=== PATIENT | female | born 1945 | race Asian ===

== ENCOUNTER 2017-06-06 18:39 | Emergency (ER) | payer MEDICARE, OTHER ==
[~2017-06-06] VITALS: Ht 149.9 cm; Wt 52.0 kg
[~2017-06-06 18:39] MED LIST: ATOR10 PO; COLC1TAB7 PO; COZA100T PO; GLUCTAB PO; IMOD2TAB PO; LOMO PO; POTA-243 PO; ZOFR4TAB3 SL; [UNRECOGNIZED DRUG - CODE] PO
--- NOTE | 2017-06-06 18:47 | PD ---
Physical Exam Date Seen by Provider: Jun 06, 2017 Time Seen by Provider: 18:42 Narrative 71 YOAF C/O L KIDNEY PAIN FOR 2 DAYS. H/O MEDITARRAIAN FEVER , P-ANCA VASCULITIS TX RETUXIN FOR 5 WEEKS VS REVIEWED WAITING FOR BED PLACEMENT MDM Supervised Visit with SHIREEN: Serafin Mcdonough Jun 06, 2017 18:47
[2017-06-06 20:13] LABS: BACTERIA, URINE MANY /hpf; BLOOD, URINE MOD (NEG); GLUCOSE,URINE NEG (NEG); HYALINE CAST, URINE 3 /lpf (RARE); KETONE, URINE NEG (NEG); MUCUS URINE FEW /lpf (OCC); NITRITE,URINE NEG (NEG); SQUAMOUS EPITHELIAL CELL URINE <1 /hpf (0-5); URINE COLOR YELLOW (YELLW/STRAW)
[2017-06-06 21:32] VITALS: BP 189/85; PULSE 80; RESP 16; TEMP 97.8; O2SAT 100
[2017-06-06] MEDS ORDERED: METF500T PO (22:02)
[2017-06-06] MEDS ORDERED: ATOR40TA16 PO (22:02)
[2017-06-06] MEDS ORDERED: LOSA100T PO (22:02)
[2017-06-06] MEDS ORDERED: DILT30TA PO (22:02)
[2017-06-06] MEDS ORDERED: ZOFR4TAB PO (22:02)
[2017-06-06] MEDS ORDERED: COLC1CAP3 PO (22:02)
[2017-06-06 22:03] VITALS: PULSE 74; RESP 18; O2SAT 99
[2017-06-06] MEDS ORDERED: SODIUM CHLOR 0.9% 1000 ML INJ 1,000 ML IV SCH (22:09)
--- NOTE | 2017-06-06 22:14 | PD ---
HPI Chief Complaint: Flank/Kidney Pain Time Seen by Provider: 22:01 Travel History International Travel<30 days: No Contact w/Intl Traveler<30days: No Traveled to known affect area: No History of Present Illness HPI 71-year-old female with history of vasculitis, nephritis, treated with rituximab 2 years ago, from [place], recently moved down here after long-term one week ago, here for evaluation of left flank pain for 2 days. The patient reports constant pain in her left flank area that is intermittently worse at times. Pain is described as sharp/pressure. She has not noted any fevers. Pain slightly worse with movements and radiates to her left lower abdomen. PFSH Past Medical History Atrial Fibrillation: Yes High Cholesterol: Yes Diabetes: Yes Patient Takes Glucophage: Yes Diminished Hearing: No Genitourinary: Yes Hypertension: Yes Immune Disorder: Yes (familial mediteranian fever) Tetanus Vaccination: Unknown Influenza Vaccination: Yes ?: Not Menopausal: Yes Past Surgical History Eye Surgery: Yes (tear ducts) Hysterectomy: Yes Other Surgery: Yes (thyroid nodule) Social History Alcohol Use: No Tobacco Use: No Substance Use: No Allergies-Medications (Allergen,Severity, Reaction): Coded Allergies: No Known Allergies (Unverified , 06/06/17) Reported Meds & Prescriptions Reported Meds & Active Scripts Active Reported Atorvastatin (Atorvastatin Calcium) 40 Mg Tab 40 Mg PO HS Zofran (Ondansetron HCl) 4 Mg Tab 4 Mg PO Q6HR PRN Colchicine 0.6 Mg Cap 0.6 Mg PO BID Diltiazem (Diltiazem HCl) 30 Mg Tab 300 Mg PO DAILY Losartan (Losartan Potassium) 100 Mg Tab 150 Mg PO DAILY Metformin (Metformin HCl) 500 Mg Tab 500 Mg PO BIDPC With meals Review of Systems Except as stated in HPI: all other systems reviewed are Neg Physical Exam Narrative GENERAL: Well-developed, well-nourished, comfortable, no apparent distress. SKIN: Focused skin assessment warm/dry. No rash. HEAD: Atraumatic. Normocephalic. EYES: Pupils equal and round. No scleral icterus. No injection or drainage. ENT: Mucous membranes pink and moist. CARDIOVASCULAR: Regular rate and rhythm. No murmur appreciated. RESPIRATORY: No accessory muscle use. Clear to auscultation. Breath sounds equal bilaterally. GASTROINTESTINAL: Abdomen soft, non-tender, nondistended. MUSCULOSKELETAL: No obvious deformities. No clubbing. No cyanosis. No edema. Moderate left CVA tenderness. No right CVA tenderness. No midline vertebral step-off or tenderness. NEUROLOGICAL: Awake and alert. No obvious cranial nerve deficits. Motor grossly within normal limits. Normal speech. PSYCHIATRIC: Appropriate mood and affect; insight and judgment normal. Data Data Last Documented VS Vital Signs Date Time Temp Pulse Resp B/P Pulse Ox O2 Delivery O2 Flow Rate FiO2 06/06/17 22:33 82 18 149/70 100 Room Air 06/06/17 21:32 97.8 Orders Ua Includes Microscopic (06/06/17 19:17) Urine Culture (06/06/17 22:02) Complete Blood Count With Diff (06/06/17 22:09) Comprehensive Metabolic Panel (06/06/17 22:09) Lipase (06/06/17 22:09) Prothrombin Time / Inr (Pt) (06/06/17 22:09) Act Partial Throm Time (Ptt) (06/06/17 22:09) Iv Access Insert/Monitor (06/06/17 22:09) Ecg Monitoring (06/06/17 22:09) Oximetry (06/06/17 22:09) Morphine Inj (Morphine Inj) (06/06/17 22:15) Ceftriaxone Inj (Rocephin Inj) (06/06/17 22:15) Sodium Chlor 0.9% 1000 Ml Inj (Ns 1000 M (06/06/17 22:09) Sodium Chloride 0.9% Flush (Ns Flush) (06/06/17 22:15) Ct Abd/Pel W/O Iv Contrast (06/06/17 23:05) Basic Metabolic Panel (Bmp) (06/06/17 23:06) Tamsulosin (Flomax) (06/07/17 00:45) Labs Laboratory Tests Test 06/06/17 06/06/17 06/06/17 19:00 22:15 23:56 Urine Color YELLOW Urine Turbidity HAZY Urine pH 6.0 Urine Specific [place] 1.016 Urine Protein 300 mg/dL Urine Glucose (UA) NEG mg/dL Urine Ketones NEG mg/dL Urine Occult Blood MOD Urine Nitrite NEG Urine Bilirubin NEG Urine Urobilinogen LESS THAN 2.0 MG/DL Urine Leukocyte Esterase NEG Urine RBC 177 /hpf Urine WBC 7 /hpf Urine Squamous Epithelial <1 /hpf Cells Urine Bacteria MANY /hpf Urine Hyaline Casts 3 /lpf Urine Mucus FEW /lpf Microscopic Urinalysis Comment White Blood Count 13.2 TH/MM3 Red Blood Count 3.94 MIL/MM3 Hemoglobin 11.4 GM/DL Hematocrit 35.5 % Mean Corpuscular Volume 90.0 FL Mean Corpuscular Hemoglobin 29.0 PG Mean Corpuscular Hemoglobin 32.2 % Concent Red Cell Distribution Width 15.0 % Platelet Count 387 TH/MM3 Mean Platelet Volume 9.3 FL Neutrophils (%) (Auto) 89.1 % Lymphocytes (%) (Auto) 7.0 % Monocytes (%) (Auto) 2.8 % Eosinophils (%) (Auto) 0.4 % Basophils (%) (Auto) 0.7 % Neutrophils # (Auto) 11.8 TH/MM3 Lymphocytes # (Auto) 0.9 TH/MM3 Monocytes # (Auto) 0.4 TH/MM3 Eosinophils # (Auto) 0.1 TH/MM3 Basophils # (Auto) 0.1 TH/MM3 CBC Comment DIFF FINAL Differential Comment Prothrombin Time 10.5 SEC Prothromb Time International 1.0 RATIO Ratio Activated Partial 27.4 SEC Thromboplast Time Sodium Level 139 MEQ/L 141 MEQ/L Potassium Level 5.8 MEQ/L 5.1 MEQ/L Chloride Level 108 MEQ/L 111 MEQ/L Carbon Dioxide Level 23.5 MEQ/L 21.4 MEQ/L Anion Gap 8 MEQ/L 9 MEQ/L Blood Urea Nitrogen 32 MG/DL 31 MG/DL Creatinine 1.75 MG/DL 1.55 MG/DL Estimat Glomerular Filtration 29 ML/MIN 33 ML/MIN Rate Random Glucose 127 MG/DL 120 MG/DL Calcium Level 8.8 MG/DL 8.4 MG/DL Total Bilirubin 0.2 MG/DL Aspartate Amino Transf 45 U/L (AST/SGOT) Alanine Aminotransferase 20 U/L (ALT/SGPT) Alkaline Phosphatase 110 U/L Total Protein 6.7 GM/DL Albumin 2.6 GM/DL Lipase 157 U/L MDM Medical Decision Making Medical Screen Exam Complete: Yes Emergency Medical Condition: Yes Differential Diagnosis Pyelonephritis, nephrolithiasis, ureterolithiasis, UTI, cystitis, colitis, nephritis Narrative Course Initial vital signs show heart rate 80, blood pressure 189/85, pulse ox 100% on room air, oral temp of 97.8F. Blood pressure improved to 149/70 without any intervention. CBC shows WBC 13.2, hemoglobin 11.4, hematocrit 35.5, platelets 387, neutrophils 89%. BMP initially showed a potassium of 5.8 with slight hemolysis, repeat shows a potassium of 5.1, BUN 31, creatinine 1.55, GFR 33. UA shows hazy urine, 300 protein, moderate occult blood, 177 RBCs, 7 wbc's, many bacteria. Patient was given a dose of IV Rocephin. CT abdomen pelvis: CONCLUSION: 1. 2-3 mm stone in the proximal left ureter with mild pelvocaliectasis of the left renal collecting system. This likely explains current clinical symptoms. 2. Pleural-based calcifications in both hemithoraces, most prominent laterally in the left lower chest. Findings are nonspecific and can represent prior asbestos exposure or previous trauma. 3. Bony fusion of the left SI joint. 4. Diverticular disease of the descending and sigmoid colon without diverticulitis. 5. Asymmetric soft tissue density in the breasts, left greater than right. Findings are again nonspecific and I would correlate with the patient's mammographic history. Patient and the patient's significant other were made aware of all findings. She is resting comfortably after receiving IV morphine and IV fluids. She was also given a dose of IV Rocephin 1 g. Patient was given a copy of her CT abdomen pelvis report. 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 She states that her last colonoscopy was about 2 years ago and that they told her that she is concerned for another 10 years from then. She is also aware of asymmetric breast density and states that her last mammogram was last year which showed this asymmetry, however was negative for suspicious cancerous lesions. The patient is stable for discharge home with outpatient follow-up with a primary care physician this week. She will be discharged home with a prescription for Flomax, pain medication, antiemetics, and antibiotics. She will also be given a urine strainer, and will be given the name of the urologist taxonomist with whom to follow-up with as well this week. She was informed on when to return to the emergency department. She verbalizes understanding and agreement with plan. Diagnosis Primary Impression: Ureterolithiasis Referrals: Leighton Owens MD Primary Care Provider Mikal Armendariz MD 3 days Urologist Primary Care Physician 3 days Additional Instructions: Follow-up with a primary care physician this week. Follow-up with urologist Dr. Armendariz or a urologist of your choice this week. Return to the emergency department for worsening symptoms or any other concerns. Scripts Ondansetron Odt (Zofran Odt)4 Mg Tab4 Mg SL Q8HR PRN (Nausea/Vomiting) #20 TAB Ref 0 Prov:Rodriguez Lopez MD 06/07/17 Hydrocodone-Acetaminophen (Lortab)5-325 Mg Tab1 Tab PO Q6H PRN (PAIN) #15 TAB Ref 0 Prov:Rodriguez Lopez MD 06/07/17 Nitrofurantoin Monohydrate Macrocrystals (Macrobid)100 Mg Ypt975 Mg PO BID #7 CAP Ref 0 Prov:Rodriguez Lopez MD 06/07/17 Tamsulosin (Flomax)0.4 Mg Cap0.4 Mg PO HS #14 CAP Ref 0 Prov:Rodriguez Lopez MD 06/07/17 Disposition: 01 DISCHARGE HOME Condition: Stable Rodriguez Lopez MD Jun 06, 2017 22:14
[2017-06-06] MEDS ORDERED: SODIUM CHLORIDE 0.9% FLUSH 10 ML FLUSH IV FLUSH PRN (22:15)
[2017-06-06] MEDS ORDERED: MORPHINE SULFATE 4 MG/ML INJ IV PUSH ONE (22:15)
[2017-06-06] MEDS ORDERED: cefTRIAXone INJ 1,000 MG in SODIUM CHLORIDE 0.9% INJ 100 ML IV ONE (22:15)
[2017-06-06 22:33] VITALS: BP 149/70; PULSE 82; RESP 18; O2SAT 100
[2017-06-06 22:45] LABS: AUTOMATED NEUTROPHIL # 11.8 TH/MM3 (1.8-7.7); BASOPHIL # 0.1 TH/MM3 (0-0.2); BASOPHIL % 0.7 % (0.0-2.0); EOSINOPHIL # 0.1 TH/MM3 (0-0.4); EOSINOPHIL % 0.4 % (0.0-4.0); HEMATOCRIT 35.5 % (35.0-46.0); HEMO FLAGS DIFF FINAL; LYMPHOCYTE # 0.9 TH/MM3 (1.0-4.8); MEAN CORPUSCULAR HGB CONC 32.2 % (32.0-36.0); MONO % 2.8 % (0.0-8.0); NEUT % 89.1 % (16.0-70.0); PLATELET COUNT 387 TH/MM3 (150-450); RED BLOOD COUNT 3.94 MIL/MM3 (4.00-5.30); WHITE BLOOD COUNT 13.2 TH/MM3 (4.0-11.0)
[2017-06-06 22:54] LABS: APTT (PATIENT) 27.4 SEC (24.3-30.1); PROTHROMBIN TIME - PATIENT 10.5 SEC (9.8-11.6)
[2017-06-06 23:00] LABS: ANION GAP 8 MEQ/L (5-15); AST (GOT) 45 U/L (15-37); BICARBONATE 23.5 MEQ/L (21.0-32.0); BLOOD UREA NITROGEN 32 MG/DL (7-18); CHLORIDE 108 MEQ/L (98-107); GLOMERULAR FILTRATION RATE 29 ML/MIN (>89); SODIUM (NA) 139 MEQ/L (136-145)
[2017-06-06 23:01] LABS: POTASSIUM 5.8 MEQ/L (3.5-5.1)
[2017-06-06 23:03] LABS: ALKALINE PHOSPHATASE 110 U/L (45-117); ALT (GPT) 20 U/L (10-53); TOTAL BILIRUBIN ADULT 0.2 MG/DL (0.2-1.0)
--- NOTE | 2017-06-07 00:25 | RADRPT ---
EXAM DATE/TIME: 06/06/2017 23:47 [facility] COMPARISON: No previous studies available for comparison. INDICATIONS : Left flank and lower quadrantq pain past 2 days. ORAL CONTRAST: No oral contrast ingested. RADIATION DOSE: 5.03 CTDIvol (mGy) MEDICAL HISTORY : Cardiovascular disease. Hypertension. SURGICAL HISTORY : Hysterectomy. ENCOUNTER: Initial ACUITY: 2 days PAIN SCALE: 6/10 LOCATION: Left lower quadrant flank TECHNIQUE: Volumetric scanning of the abdomen and pelvis was performed. Using automated exposure control and ad justment of the mA and/or kV according to patient size, radiation dose was kept as low as reasonably achievable to obtain optimal diagnostic quality images. DICOM format image data is available electro nically for review and comparison. FINDINGS: LOWER LUNGS: Pleural-based calcifications are seen bilaterally, most prominent and quite dense laterally in the le ft lower hemithorax. Lungs are otherwise clear. Asymmetric soft tissue density in the breasts, left g reater than right. LIVER: Homogeneous density without lesion. There is no dilation of the biliary tree. No calcified gallston es. SPLEEN: Normal size without lesion. PANCREAS: Within normal limits. KIDNEYS: 2-3 mm stone in the proximal left ureter with mild pelvocaliectasis of the left renal collecting syst em. ADRENAL GLANDS: Within normal limits. VASCULAR: There is no aortic aneurysm. BOWEL/MESENTERY: Diverticular disease in the descending and sigmoid colon without diverticulitis. ABDOMINAL WALL: Within normal limits. RETROPERITONEUM: There is no lymphadenopathy. BLADDER: No wall thickening or mass. REPRODUCTIVE: Status post hysterectomy. Otherwise intact. INGUINAL: There is no lymphadenopathy or hernia. MUSCULOSKELETAL: Bony fusion of the left SI joint. CONCLUSION: 1. 2-3 mm stone in the proximal left ureter with mild pelvocaliectasis of the left renal collecting s ystem. This likely explains current clinical symptoms. 2. Pleural-based calcifications in both hemithoraces, most prominent laterally in the left lower ches t. Findings are nonspecific and can represent prior asbestos exposure or previous trauma. 3. Bony fusion of the left SI joint. 4. Diverticular disease of the descending and sigmoid colon without diverticulitis. 5. Asymmetric soft tissue density in the breasts, left greater than right. Findings are again nonspec ific and I would correlate with the patient's mammographic history. Jasen Anglin MD on June 07, 2017 at 0:11 Board Certified Radiologist. This report was verified electronically.
[2017-06-07 00:28] LABS: BICARBONATE 21.4 MEQ/L (21.0-32.0); POTASSIUM 5.1 MEQ/L (3.5-5.1)
[2017-06-07] MEDS ORDERED: TAMSULOSIN HCL 0.4 MG CAP PO ONE (00:45)
[2017-06-07] MEDS ORDERED: ZOFR4TAB3 SL (01:02)
[2017-06-07] MEDS ORDERED: MACR100C2 PO (01:02)
[2017-06-07] MEDS ORDERED: HYDR-3533 PO (01:02)
[2017-06-07] MEDS ORDERED: TAMS5CAP PO (01:02)
[2017-06-12] MEDS ORDERED: LOSA50TA PO (14:43)
[2017-06-12] MEDS ORDERED: LOSA100T PO (14:43)
[2017-07-12] MEDS ORDERED: COZA100T PO (09:19)
[2017-07-12] MEDS ORDERED: DILT300C3 PO (09:19)
== END 2017-06-07 01:33 | disposition home or self-care (01) ==
LOC: NEPD 18:39
DX: N20.1 Calculus of ureter (principal); B96.1 Klebsiella pneumoniae [K. pneumoniae] as the cause of diseases classified elsewhere; I10 Essential (primary) hypertension; E11.9 Type 2 diabetes mellitus without complications; I48.91 Unspecified atrial fibrillation; E78.00 Pure hypercholesterolemia, unspecified; N05.9 Unspecified nephritic syndrome with unspecified morphologic changes; Z79.899 Other long term (current) drug therapy
CPT/HCPCS: 74176; 80053; 81001; 83690; 85025; 85610; 85730; 87077; 87086; 87186; 96374; 96375; 99285; J0696; J2270; J7030; 80048

== ENCOUNTER → 2017-07-12 | Outpatient (CLI) | payer MEDICARE, OTHER ==
[~2017-07-12] MED LIST changes: +ACET-822 PO; +ASPI81CH37 CHEW; -ATOR10 PO; +ATOR40TA16 PO; +COLC1CAP3 PO; +COLC1TAB15 PO; -COLC1TAB7 PO; +COMMODE 3-IN-11 MIS; +CPMMACHINE; +DILT300C3 PO; +DILT30TA PO; +ENOX30P SQ; -GLUCTAB PO; +HYDR-3288 PO; +HYDR-3533 PO; -IMOD2TAB PO; -LOMO PO; +LOSA100T PO; +LOSA50TA PO; +METF500T PO; -POTA-243 PO; +WALKER WHEELS/F1 MIS; +ZOFR4TAB PO; -[UNRECOGNIZED DRUG - CODE] PO
[2017-07-12 09:39] LABS: AUTOMATED NEUTROPHIL # 5.6 TH/MM3 (1.8-7.7); BASOPHIL # 0.1 TH/MM3 (0-0.2); BASOPHIL % 0.6 % (0.0-2.0); EOSINOPHIL # 0.3 TH/MM3 (0-0.4); EOSINOPHIL % 3.5 % (0.0-4.0); HEMATOCRIT 32.5 % (35.0-46.0); LYMPH % 21.3 % (9.0-44.0); LYMPHOCYTE # 1.8 TH/MM3 (1.0-4.8); MEAN CELL VOLUME 89.5 FL (80.0-100.0); MEAN CORPUSCULAR HEMOGLOBIN 29.1 PG (27.0-34.0); MEAN CORPUSCULAR HGB CONC 32.5 % (32.0-36.0); MONO % 7.7 % (0.0-8.0); NEUT % 66.9 % (16.0-70.0); PLATELET COUNT 369 TH/MM3 (150-450); RED BLOOD COUNT 3.64 MIL/MM3 (4.00-5.30); RED CELL DISTRIBUTION WIDTH 15.2 % (11.6-17.2); WHITE BLOOD COUNT 8.4 TH/MM3 (4.0-11.0)
[2017-07-12 09:44] LABS: HEMO FLAGS DIFF FINAL
[2017-07-12 09:46] LABS: APTT (PATIENT) 26.7 SEC (24.3-30.1); INTERNATIONAL NORMALIZED RATIO 0.9 RATIO; PROTHROMBIN TIME - PATIENT 10.4 SEC (9.8-11.6)
[2017-07-12 09:54] LABS: BACTERIA, URINE RARE /hpf; BLOOD, URINE MOD (NEG); COMMENT (UR) CULT NOT INDICATED; CULTURE IF INDICATED CULT NOT INDICATED; GLUCOSE,URINE TRACE mg/dL (NEG); HYALINE CAST, URINE 22 /lpf (RARE); KETONE, URINE NEG (NEG); MUCUS URINE FEW /lpf (OCC); NITRITE,URINE NEG (NEG); SQUAMOUS EPITHELIAL CELL URINE 1 /hpf (0-5); URINE COLOR YELLOW (YELLW/STRAW)
[2017-07-12 09:54] LABS: WESTERGREN SEDIMENTATION RATE 57 mm/hr (0-30)
[2017-07-12 10:02] LABS: ANION GAP 6 MEQ/L (5-15); AST (GOT) 14 U/L (15-37); BICARBONATE 23.2 MEQ/L (21.0-32.0); BLOOD UREA NITROGEN 29 MG/DL (7-18); CHLORIDE 111 MEQ/L (98-107); GLOMERULAR FILTRATION RATE 33 ML/MIN (>89); GLUCOSE,FASTING 84 MG/DL (74-99); POTASSIUM 5.1 MEQ/L (3.5-5.1); SODIUM (NA) 140 MEQ/L (136-145)
[2017-07-12 10:06] LABS: ALKALINE PHOSPHATASE 107 U/L (45-117); ALT (GPT) 13 U/L (10-53); TOTAL BILIRUBIN ADULT 0.2 MG/DL (0.2-1.0)
--- NOTE | 2017-07-12 15:03 | RADRPT ---
EXAM DATE/TIME: 07/12/2017 14:11 [facility] COMPARISON: No previous studies available for comparison. INDICATIONS : Evaluate for penumonia, pneumothorax, or communicable disease. Pre op for right total knee surgery. MEDICAL HISTORY : Hypercholesterolemia. Diabetes mellitus type II. A-fib. Mumps. Renal vasculitis. Thyroid nodule. Familial Mediterranean fever. SURGICAL HISTORY : Hysterectomy. Renal ENCOUNTER: Initial ACUITY: 1 day PAIN SCORE: 0/10 LOCATION: chest FINDINGS: PA and lateral views of the chest demonstrate a volume loss on the left. Extensive pleural thickening . Extensive pleural calcifications along the lateral convexity on the left. Apical pleural thickening on the left. No consolidation in the right lung. Mild emphysematous changes in the right apex. [place] [facility] structures are intact. CONCLUSION: 1. 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 No prior studies available for michele rison. 2. Left apical pleural thickening. 3. No consolidation. Adryan Wilkinson MD on July 12, 2017 at 15:00 Board Certified Radiologist. This report was verified electronically.
== END ==
LOC: CPRE 08:38
PROVIDERS: ATTEND Orthopaedic Surgery Sports Medicine
DX: Z01.811 Encounter for preprocedural respiratory examination (principal); Z01.818 Encounter for other preprocedural examination; Z01.812 Encounter for preprocedural laboratory examination; M25.50 Pain in unspecified joint; M17.11 Unilateral primary osteoarthritis, right knee; Z79.01 Long term (current) use of anticoagulants
CPT/HCPCS: 36415; 71020; 80053; 81001; 85025; 85610; 85652; 85730

== ENCOUNTER 2017-07-29 05:29 | Inpatient (IN) | payer MEDICARE, OTHER ==
[~2017-07-29] VITALS: Ht 149.9 cm; Wt 58.4 kg
[~2017-07-29 05:29] MED LIST changes: -ACET-822 PO; -ASPI81CH37 CHEW; -COLC1TAB15 PO; -COMMODE 3-IN-11 MIS; -COZA100T PO; -CPMMACHINE; -DILT30TA PO; -ENOX30P SQ; -HYDR-3288 PO; -WALKER WHEELS/F1 MIS; -ZOFR4TAB PO
[2017-07-29] MEDS ORDERED: COLC1TAB15 PO (06:51)
[2017-07-29] MEDS ORDERED: ACET-822 PO (06:53)
[2017-07-29] MEDS ORDERED: GENTAMICIN SULFATE 80 MG/2 ML VIAL ONE (06:53)
[2017-07-29] MEDS ORDERED: LACTATED RINGER'S 1000 ML IV PRN (07:00)
[2017-07-29] MEDS ORDERED: ceFAZolin 2 GM PREMIX 50 ML IV SCH (07:00)
[2017-07-29] MEDS ORDERED: SODIUM CHLORID 0.9% 500 ML IV PRN (07:00)
[2017-07-29] MEDS ORDERED: SODIUM CHLORIDE 0.9% FLUSH 5 ML FLUSH IVF PRN (07:00)
[2017-07-29] MEDS ORDERED: BISACODYL 10 MG SUPP RECTAL PRN (07:00)
[2017-07-29] MEDS ORDERED: POVIDONE IODINE 5% (ANTISEPSIS KIT) 4 APPLICATIONS EACH NARE PRN (07:00)
[2017-07-29] MEDS ORDERED: METOPROLOL TARTRATE 25 MG TAB PO PRN (07:00)
[2017-07-29] MEDS ORDERED: CHLORHEXIDINE GLUCONATE 2 % 1 PACK (2 CLOTHS) TOPICAL PRN (07:00)
[2017-07-29] MEDS ORDERED: Post-op Orders (for Pharmacy) MISC XX ONE (07:00)
[2017-07-29] MEDS ORDERED: CHLORHEXIDINE GLUCONATE 4% SOLN 120 ML BTL TOPICAL SCH (07:00)
[2017-07-29] MEDS ORDERED: POVIDONE IODINE 7.5% SCRUB 118 ML BOTTLE TOPICAL SCH (07:00)
[2017-07-29] MEDS ORDERED: INSULIN HUMAN REGULAR 1,000 UNITS/10 ML VIAL SQ PRN (07:00)
[2017-07-29] MEDS ORDERED: VANCOMYCIN 1000 MG/NS 250 ML (for <70 kg) IV SCH ×2 (07:00)
[2017-07-29] MEDS ORDERED: diphenhydrAMINE HCL 50 MG/ML VIAL IV PUSH PRN (07:00)
[2017-07-29] MEDS ORDERED: MORPHINE SULFATE 4 MG/ML INJ IV PUSH PRN (07:00)
[2017-07-29] MEDS ORDERED: NALOXONE HCL 0.4 MG/ML AMP IV PRN (07:00)
[2017-07-29] MEDS ORDERED: DEXAMETHASONE SOD PHOS 20 MG/5 ML VIAL IV SCH (07:00)
[2017-07-29] MEDS ORDERED: HYDR-3288 PO (07:03)
[2017-07-29] MEDS ORDERED: ROPIVACAINE 0.5% PF INJ 30 ML VIAL ONE (07:03)
[2017-07-29] MEDS ORDERED: ENOX30P SQ (07:03)
[2017-07-29] MEDS ORDERED: DEXAMETHASONE SOD PHOS 4 MG/ML VIAL ONE (07:04)
[2017-07-29] MEDS ORDERED: ASPI81CH37 CHEW (07:04)
[2017-07-29] MEDS ORDERED: PROPOFOL 200 MG/20 ML AMP ONE (07:43)
[2017-07-29] MEDS ORDERED: BUPIVACAINE LIPOSOME PF 1.3% 20 ML VIAL ONE (07:46)
[2017-07-29] MEDS ORDERED: ROPIVACAINE PERI-ARTICULAR INJECTION. P-ARTICULR SCH ×5 (08:30)
[2017-07-29] MEDS ORDERED: TRANEXAMIC ACID INJ 786 MG in SODIUM CHLORIDE 0.9% INJ 100 ML IV SCH (08:30)
[2017-07-29] MEDS ORDERED: TRANEXAMIC PERI-ARTICULAR 3,000 MG/NS 100 ML P-ARTICULR SCH ×2 (08:30)
[2017-07-29] MEDS: metFORMIN HCL 500 MG TAB PO SCH ×2 (09:00→17:52)
[2017-07-29] MEDS: SODIUM CHLORIDE 0.9% FLUSH 5 ML FLUSH IVF SCH ×2 (09:00→20:57)
[2017-07-29] MEDS: LOSARTAN 50 MG TAB PO SCH (09:00)
[2017-07-29] MEDS: COLCHICINE 0.6 MG TAB PO SCH ×2 (09:00→20:57)
[2017-07-29] MEDS: DILTIAZEM-CD 300 MG CAP ER PO SCH (09:00)
[2017-07-29] MEDS ORDERED: DO NOT ADM ANY ANTICOAGULANT DRUGS PRN (09:58)
--- NOTE | 2017-07-29 10:17 | MP ---
cc: NEVIN TUCKER M.D. DATE OF SURGERY: 07/29/2017 PREOPERATIVE DIAGNOSIS Right knee osteoarthritis. POSTOPERATIVE DIAGNOSIS Right knee osteoarthritis. PROCEDURE Right total knee arthroplasty. SURGEON Dr. Nevin Tucker. INDUSTRIAL ENGINEERING INTERN Nevin Kelly PA-C. ANESTHESIA Spinal with an adductor canal nerve block. ESTIMATED BLOOD LOSS 50 cc. TOURNIQUET TIME 37 minutes at 250 mmHg. COMPLICATIONS None. IMPLANTS USED DePuy Sourceryune size 4 posterior stabilized femoral component, size 3 rotating platform tibia baseplate, size 6 mm polyethylene tibial insert, size 32 patella. JUSTIFICATION The patient is a 61-year-old female with a history of severe end-stage osteoarthritis involving the right knee. She has severe disabling pain with standing, walking, ambulation, weightbearing activities and even severe pain at rest. She has failed greater than three months of nonoperative conservative treatment to include medication, therapy, injections, ambulatory assisted aids, home exercise program and activity modification. The patient is not overweight. X-rays of the right knee reveal severe end-stage osteoarthritis with [id number] joint space narrowing, subchondral sclerosis, subchondral cysts, osteophyte formation with varus deformity. The patient was counseled as to the risks, benefits and alternatives of a total knee arthroplasty. The risks were discussed which include but are not limited to anesthesia, bleeding, infection, damage to nerves, blood vessels, pain, stiffness, failure of components, blood clots, pulmonary embolism and even . The patient's pain is severe. She favored the benefits over the risks. She did wish to proceed with surgery. PROCEDURE IN DETAIL Written consent was obtained. The patient was identified by name. She was taken to the operating room and placed supine on the operating table. Spinal anesthesia was administered as well as an adductor canal nerve block. A well-padded tourniquet was placed on the right thigh. The right lower extremity was prepped and draped using isopropyl alcohol, Hibiclens solution and ChloraPrep solution. After a timeout was performed an Esmarch bandage was used to exsanguinate the right lower extremity and tourniquet inflated to 250 mmHg. A longitudinal incision was made over the anterior aspect of the right knee. A medial parapatellar arthrotomy was performed. The patella was everted. A patellar resection guide was used to resect 7 mm of patella. The size 32 mm guide was placed. Three drill holes were placed. The 32 mm trial fit well. Attention was turned to the femur where an intramedullary guide kj was placed and the distal femoral guide was set to remove 9 mm of distal femur 5 degrees off the anatomic valgus axis alignment. An oscillating saw was used to perform the distal femoral cut. Attention was turned to the tibia where an extramedullary tibial guide was set to remove 5 mm of the lowest portion of the medial tibial plateau. The tibia guide was pinned in place and a tibia cut was performed. A 5 mm spacer block showed full extension. Attention was back to the femur where an AP sizer block measured size 4. The anterior, posterior and chamfer cuts were performed. A size 4 PCL box guide was pinned in place and the PCL box cut with an oscillating saw. The medial and lateral meniscus remnants were removed as well as bone and soft tissue debris from the posterior portion of the knee. A size 3 tibia baseplate was pinned in place. The tibia was drilled and punched. The trial components were evaluated and final components cemented in place. With the current components the leg could achieve full extension to 0 degrees and flexion to 140. There was no evidence of tibial lift-off. Varus-valgus appeared appropriate and symmetric and the patella was noted to track centrally. The tourniquet was deflated. Bovie cautery was used for hemostasis. The surgical wound was thoroughly irrigated with sterile saline pulse lavage antibiotic-impregnated solution. The arthrotomy incision was closed with #1 Vicryl suture, the subcutaneous layer with 2-0 Vicryl suture and skin was closed with Dermabond. Sterile dressing was applied. The patient tolerated the procedure well with no intraoperative complications noted. Nevin Kelly, physician photo studio assistant certified, was present during the entire procedure to include patient positioning and the procedure itself. The medical necessity of the physician photo studio assistant was indicated in this case due to the complexity of the procedure. He assisted with appropriate manipulation of the leg and also retraction of muscle, tendon, bone and neurovascular structures. He assisted with preparation of bone and also implantation of the prosthetic replacement. MD BERNARDINO Ortega/ALICIA /9:41 AM /9:49 AM
[2017-07-29] MEDS ORDERED: *MEPERIDINE 25 MG INJ VIAL PERIprocedural Use ONLY ONE (10:26)
--- NOTE | 2017-07-29 10:45 | RADRPT ---
EXAM DATE/TIME: 07/29/2017 10:11 [facility] COMPARISON: No previous studies available for comparison. INDICATIONS : Post op right total knee. MEDICAL HISTORY : Cardiovascular disease. Hypertension SURGICAL HISTORY : Hysterectomy. ENCOUNTER: Initial ACUITY: 1 day PAIN SCORE: 0/10 LOCATION: Right Knee FINDINGS: AP and lateral views of the knee following arthroplasty reveals a prosthesis in anatomic alignment. F racture is not appreciated. CONCLUSION: Status post total knee arthroplasty. Roland Lyons MD FACR Board Certified Radiologist. This report was verified electronically.
[2017-07-29] MEDS: SODIUM CHLOR 0.9% 1000 ML INJ 1,000 ML IV SCH ×3 (11:00→20:58)
[2017-07-29] MEDS ORDERED: LACTATED RINGER'S 1000 ML INJ 1,000 ML IV ONE (12:00)
[2017-07-29] MEDS ORDERED: ONDANSETRON HCL 4 MG/2 ML VIAL IV PUSH ONE (12:00)
[2017-07-29] MEDS ORDERED: PROPOFOL 200 MG/20 ML AMP IV ONE (12:00)
[2017-07-29] MEDS ORDERED: PHENYLEPH/NS 1000 MCG/10 ML SYR IV ONE (12:00)
[2017-07-29] MEDS ORDERED: SUCCINYLCHOLINE CHLORIDE 100 MG/5 ML SYRINGE IV PUSH ONE (12:00)
[2017-07-29] MEDS ORDERED: ePHEDrine/NS 25 MG/5 ML SYR IV ONE (12:00)
[2017-07-29] MEDS ORDERED: MIDAZOLAM HCL 2 MG/2 ML VIAL IV ONE (12:00)
[2017-07-29] MEDS: ACETAMINOPHEN/HYDROcodone 325 MG/10 MG TAB PO PRN ×2 (12:47→22:11)
[2017-07-29] MEDS ORDERED: GLUCAGON 1 MG/ML VIAL OTHER PRN (14:30)
[2017-07-29] MEDS ORDERED: DEXTROSE 50% IN WATER 50 ML VIAL(D50) IV PUSH PRN (14:30)
--- NOTE | 2017-07-29 14:30 | HHI.DCPOC ---
Discharge Care Plan Diagnosis: (1) Primary localized osteoarthrosis, lower leg Your Health Problems Are: Difficulty with ADL Goals to Promote Your Health * To prevent worsening of your condition and complications * To maintain your health at the optimal level Directions to Meet Your Goals Take your medications as prescribed Follow your dietary instruction Follow activity as directed Keep your appointments as scheduled Take your immunizations and boosters as scheduled If your symptoms worsen call your PCP, if no PCP go to Urgent Care Center or Emergency Room Smoking is Dangerous to Your Health. Avoid second hand smoke Call the 24-hour hour crisis hotline for domestic abuse at Jeremy Kelly Jul 29, 2017 14:30
--- NOTE | 2017-07-29 14:30 | HHI.FF ---
Face to Face Verification Diagnosis: (1) Primary localized osteoarthrosis, lower leg Physical Therapy Gait training, Safety evaluation, Transfer training, bed to chair Knee: Total knee, Protocol: Right, Full weight bearing Right LE Weight Bearing: WB as tolerated Nursing RN: 3 days/week x 2 weeks Nursing: Josiah teaching, Dressing changes Dressing Changes: Daily dressing change I have seen patient Yanira Madsen on 07/29/17. My clinical findings support the need for the requested home health care services because: Limited ability to care for self High risk of falls I certify that my clinical findings support that this patient is homebound because: Post-op weakness Unsteady gait/balance Jeremy Kelly Jul 29, 2017 14:30
--- NOTE | 2017-07-29 14:31 | PD.CONS ---
HPI Service [facility] Consult Requested By Orthopedic surgery Reason for Consult Medical management Primary Care Physician Fatimah Winkler MD Diagnoses: History of Present Illness 71 year-old female with a history of diabetes type 2, right knee osteoarthritis who despite medical management continue to have severe and worsening pain affecting her daily living up activity including ambulation. Patient was taken to the operating room today and underwent right total knee arthroplasty.[facility] was consulted for medical management. Patient was seen in PACU, denies any chest pain or shortness of breath. Vitals stable. Review of Systems Except as stated in HPI: all other systems reviewed are Neg Past Family Social History Allergies: Coded Allergies: No Known Allergies (Unverified , 07/29/17) Past Medical History Right knee osteoarthritis Diabetes type 2 Hypertension Past Surgical History Right total knee arthroplasty 07/29/17 Total abdominal hysterectomy Reported Medications See EMR Family History Noncontributory Social History Patient denies tobacco, alcohol or illicit drug intake Physical Exam Vital Signs Vital Signs Date Time Temp Pulse Resp B/P (MAP) Pulse Ox O2 Delivery O2 Flow Rate FiO2 07/29/17 13:00 75 22 144/69 (94) 99 Room Air 07/29/17 11:30 79 20 119/58 (78) 98 Room Air 07/29/17 11:00 97.7 75 16 124/61 (82) 100 Nasal Cannula 2 07/29/17 10:45 81 16 99/51 (67) 100 Nasal Cannula 2 07/29/17 10:30 81 22 136/58 (84) 100 Nasal Cannula 2 07/29/17 10:15 97.4 07/29/17 10:15 78 20 116/56 (76) 100 Nasal Cannula 2 07/29/17 10:00 97.4 81 20 107/58 (74) 100 Nasal Cannula 2 07/29/17 06:56 99.0 75 20 161/89 (113) 100 Physical Exam GENERAL: This is a well-nourished, well-developed patient, in no apparent distress. SKIN: No rashes, ecchymoses or lesions. Cool and dry. HEAD: Atraumatic. Normocephalic. No temporal or scalp tenderness. EYES: Pupils equal round and reactive. Extraocular motions intact. No scleral icterus. No injection or drainage. ENT: Nose without bleeding, purulent drainage or septal hematoma. Throat without erythema, tonsillar hypertrophy or exudate. Uvula midline. Airway patent. NECK: Trachea midline. No JVD or lymphadenopathy. Supple, nontender, no meningeal signs. CARDIOVASCULAR: Regular rate and rhythm without murmurs, gallops, or rubs. RESPIRATORY: Clear to auscultation. Breath sounds equal bilaterally. No wheezes , rales, or rhonchi. GASTROINTESTINAL: Abdomen soft, non-tender, nondistended. No hepato-splenomegaly , or palpable masses. No guarding. MUSCULOSKELETAL: Extremities without clubbing, cyanosis, or edema. No joint tenderness, effusion, or edema noted. No calf tenderness. Negative Homans sign bilaterally. Right total knee repair-neurovascular intact NEUROLOGICAL: Awake and alert. Cranial nerves II through XII intact. Motor and sensory grossly within normal limits. Five out of 5 muscle strength in all muscle groups. Normal speech. Imaging Last Impressions Knee X-Ray 07/29/17 0000 Signed Impressions: Service Date/Time: Saturday, July 29, 2017 10:11 - CONCLUSION: Status post total knee arthroplasty. Roland Lyons MD Assessment and Plan Assessment and Plan 71 year-old female with Status post Right total knee arthroplasty 07/29/17 Management per orthopedic surgery Pain management accordingly PT consult to treat and eval Lovenox for DVT prophylaxis Diabetes type 2 Start insulin sliding scale Resume metformin Hyperlipidemia Resume statin Hypertension Resume Cardizem, losartan Vasotec when necessary DVT prophylaxis: Lovenox Thank you for this consultation Code Status Full code Discussed Condition With Patient Adryan Morris MD Jul 29, 2017 14:31
[2017-07-29 15:57] VITALS: BP 145/84; PULSE 76; RESP 18; TEMP 95.1; O2SAT 100
[2017-07-29] MEDS ORDERED: ENALAPRILAT 2.5 MG/2 ML VIAL IV PUSH PRN (16:30)
[2017-07-29] MEDS: INSULIN ASPART SUPPLEMENTAL SCALE SQ SCH ×2 (17:00→20:57)
[2017-07-29 20:16] VITALS: BP 137/69; PULSE 65; RESP 17; TEMP 96.8; O2SAT 97
[2017-07-29] MEDS: ATORVASTATIN 40 MG TAB PO SCH (20:56)
[2017-07-29] MEDS ORDERED: ZOLPIDEM TARTRATE 5 MG TAB PO PRN (21:00)
[2017-07-29] MEDS: ENOXAPARIN SODIUM 30 MG/0.3 ML SYRINGE SQ SCH (22:08)
[2017-07-30] VITALS (9 sets, daily range): BP systolic 133–162; BP diastolic 69–85; PULSE 62–69; RESP 16–18; TEMP 96.4–97.7; O2SAT 96–98
[2017-07-30] MEDS: SODIUM CHLOR 0.9% 1000 ML INJ 1,000 ML IV SCH ×3 (03:00→23:00)
[2017-07-30] MEDS: ACETAMINOPHEN/HYDROcodone 325 MG/10 MG TAB PO PRN ×4 (06:15→22:01)
[2017-07-30] MEDS: ONDANSETRON HCL 4 MG/2 ML VIAL IVP PRN ×3 (06:17→17:24)
[2017-07-30 07:13] LABS: HEMATOCRIT 28.6 % (35.0-46.0); MEAN CELL VOLUME 88.8 FL (80.0-100.0); MEAN CORPUSCULAR HEMOGLOBIN 28.5 PG (27.0-34.0); PLATELET COUNT 348 TH/MM3 (150-450); RED BLOOD COUNT 3.22 MIL/MM3 (4.00-5.30); RED CELL DISTRIBUTION WIDTH 15.1 % (11.6-17.2); REVIEW FLAG FINAL; WHITE BLOOD COUNT 19.8 TH/MM3 (4.0-11.0)
[2017-07-30 07:15] LABS: BICARBONATE 19.3 MEQ/L (21.0-32.0); POTASSIUM 4.8 MEQ/L (3.5-5.1)
[2017-07-30] MEDS: INSULIN ASPART SUPPLEMENTAL SCALE SQ SCH ×4 (07:24→21:00)
--- NOTE | 2017-07-30 08:09 | PD.ORT.PN ---
Subjective Post Op Day #: 1 Subjective Remarks pain tolerable. had nausea yesterday. better this am. Objective Vitals Vital Signs Date Time Temp Pulse Resp B/P (MAP) Pulse Ox O2 Delivery O2 Flow Rate FiO2 07/30/17 04:22 96.4 63 17 148/69 (95) 98 07/30/17 03:38 98 07/30/17 00:20 97.2 67 17 133/71 (91) 98 07/29/17 20:16 96.8 65 17 137/69 (91) 97 07/29/17 15:57 95.1 76 18 145/84 (104) 100 07/29/17 14:00 81 20 155/78 (103) 98 Room Air 07/29/17 13:00 75 22 144/69 (94) 99 Room Air 07/29/17 11:30 79 20 119/58 (78) 98 Room Air 07/29/17 11:00 97.7 75 16 124/61 (82) 100 Nasal Cannula 2 07/29/17 10:45 81 16 99/51 (67) 100 Nasal Cannula 2 07/29/17 10:30 81 22 136/58 (84) 100 Nasal Cannula 2 07/29/17 10:15 97.4 07/29/17 10:15 78 20 116/56 (76) 100 Nasal Cannula 2 07/29/17 10:00 97.4 81 20 107/58 (74) 100 Nasal Cannula 2 I/O 07/29/17 07/29/17 07/29/17 07/30/17 07/30/17 07/30/17 07:00 15:00 23:00 07:00 15:00 23:00 Intake Total 1900 ml 800 ml 548 ml Output Total 700 ml 400 ml 650 ml Balance 1200 ml 400 ml -102 ml Intake Oral 240 ml 120 ml IV Total 1900 ml 560 ml 428 ml Output Urine Total 650 ml 400 ml 650 ml Estimated Blood Loss 50 ml # Bowel Movements 0 0 Result Diagram: 07/30/17 0607/30/17 06 Objective Remarks in chair, nad incision no erythema, no drainage neg homans nvi Assessment & Plan Ortho Post Op Day #: 1 Problem List: Assessment and Plan s/p R TKA wbat daily dressing changes lovenox d/c planning home with [facility] and pt rx in chart f/up dr. hall 2 weeks Jeremy Kelly Jul 30, 2017 08:09
[2017-07-30] MEDS ORDERED: WALKER WHEELS/F1 MIS (08:11)
[2017-07-30] MEDS ORDERED: COMMODE 3-IN-11 MIS (08:11)
[2017-07-30] MEDS ORDERED: CPMMACHINE (08:11)
[2017-07-30] MEDS: COLCHICINE 0.6 MG TAB PO SCH ×2 (08:44→20:35)
[2017-07-30] MEDS: DILTIAZEM-CD 300 MG CAP ER PO SCH (08:44)
[2017-07-30] MEDS: LOSARTAN 50 MG TAB PO SCH (08:45)
[2017-07-30] MEDS: SODIUM CHLORIDE 0.9% FLUSH 5 ML FLUSH IVF SCH ×2 (08:48→20:35)
--- NOTE | 2017-07-30 11:35 | HHI.PR ---
Subjective Remarks Patient seen and examined she did ambulate this AM had 1 episode of emesis Afebrile Objective Vitals Vital Signs Date Time Temp Pulse Resp B/P (MAP) Pulse Ox O2 Delivery O2 Flow Rate FiO2 07/30/17 08:17 97 21 07/30/17 08:00 97.6 69 18 142/70 (94) 97 07/30/17 04:22 96.4 63 17 148/69 (95) 98 07/30/17 03:38 98 07/30/17 00:20 97.2 67 17 133/71 (91) 98 07/29/17 20:16 96.8 65 17 137/69 (91) 97 07/29/17 15:57 95.1 76 18 145/84 (104) 100 07/29/17 14:00 81 20 155/78 (103) 98 Room Air 07/29/17 13:00 75 22 144/69 (94) 99 Room Air I/O 07/29/17 07/29/17 07/29/17 07/30/17 07/30/17 07/30/17 06:59 14:59 22:59 06:59 14:59 22:59 Intake Total 1900 ml 800 ml 548 ml Output Total 700 ml 400 ml 650 ml Balance 1200 ml 400 ml -102 ml Intake Oral 240 ml 120 ml IV Total 1900 ml 560 ml 428 ml Output Urine Total 650 ml 400 ml 650 ml Estimated Blood Loss 50 ml # Bowel Movements 0 0 Result Diagram: 07/30/17 0600 07/30/17 0600 Imaging Last Impressions Knee X-Ray 07/29/17 0000 Signed Impressions: Service Date/Time: Saturday, July 29, 2017 10:11 - CONCLUSION: Status post total knee arthroplasty. Roland Lyons MD Objective Remarks GENERAL: NAD SKIN: Warm and dry. HEAD: Normocephalic. EYES: No scleral icterus. No injection or drainage. NECK: Supple, trachea midline. No JVD or lymphadenopathy. CARDIOVASCULAR: Regular rate and rhythm without murmurs, gallops, or rubs. RESPIRATORY: Breath sounds equal bilaterally. No accessory muscle use. GASTROINTESTINAL: Abdomen soft, non-tender, nondistended. MUSCULOSKELETAL: No cyanosis, or edema. repair left knee-neurovascular intact BACK: Nontender without obvious deformity. No CVA tenderness. A/P Assessment and Plan 71 year-old female with Status post Right total knee arthroplasty 07/29/17 Management per orthopedic surgery Pain management accordingly PT to treat and eval Lovenox for DVT prophylaxis Diabetes type 2 Continue insulin sliding scale Hold metformin 2/2 worsening renal function Hyperlipidemia continue statin Hypertension continue Cardizem, losartan Vasotec when necessary DVT prophylaxis: Lovenox Adryan Morris MD Jul 30, 2017 11:35
[2017-07-30] MEDS: DOCUSATE SODIUM 100 MG CAP PO SCH (20:35)
[2017-07-30] MEDS: ATORVASTATIN 40 MG TAB PO SCH (20:35)
[2017-07-30] MEDS: MULTIVITAMINS/MINERALS THERAPEUTIC TAB PO SCH (20:36)
[2017-07-30] MEDS ORDERED: POLYETHYLENE GLYCOL 17 GM PKG PO SCH (21:00)
[2017-07-30] MEDS ORDERED: BISACODYL EC 5 MG TABEC PO SCH (21:00)
[2017-07-30] MEDS: ENOXAPARIN SODIUM 30 MG/0.3 ML SYRINGE SQ SCH (22:01)
[2017-07-31 00:30] VITALS: BP 168/82; PULSE 80; RESP 17; TEMP 96.8; O2SAT 99
[2017-07-31] MEDS: ACETAMINOPHEN/HYDROcodone 325 MG/10 MG TAB PO PRN ×2 (06:07→09:57)
[2017-07-31 07:09] LABS: HEMATOCRIT 26.8 % (35.0-46.0); MEAN CELL VOLUME 87.9 FL (80.0-100.0); MEAN CORPUSCULAR HEMOGLOBIN 28.4 PG (27.0-34.0); MEAN CORPUSCULAR HGB CONC 32.3 % (32.0-36.0); PLATELET COUNT 322 TH/MM3 (150-450); RED BLOOD COUNT 3.04 MIL/MM3 (4.00-5.30); RED CELL DISTRIBUTION WIDTH 15.2 % (11.6-17.2); REVIEW FLAG FINAL; WHITE BLOOD COUNT 13.5 TH/MM3 (4.0-11.0)
[2017-07-31] MEDS: MULTIVITAMINS/MINERALS THERAPEUTIC TAB PO SCH (07:28)
[2017-07-31] MEDS: DILTIAZEM-CD 300 MG CAP ER PO SCH (07:28)
[2017-07-31] MEDS: DOCUSATE SODIUM 100 MG CAP PO SCH (07:29)
[2017-07-31] MEDS: COLCHICINE 0.6 MG TAB PO SCH (07:29)
[2017-07-31] MEDS: LOSARTAN 50 MG TAB PO SCH (07:29)
[2017-07-31 07:31] LABS: BICARBONATE 20.4 MEQ/L (21.0-32.0); POTASSIUM 4.4 MEQ/L (3.5-5.1)
[2017-07-31] MEDS: INSULIN ASPART SUPPLEMENTAL SCALE SQ SCH (07:38)
[2017-07-31] MEDS: SODIUM CHLOR 0.9% 1000 ML INJ 1,000 ML IV SCH (07:39)
[2017-07-31] MEDS: SODIUM CHLORIDE 0.9% FLUSH 5 ML FLUSH IVF SCH (07:39)
[2017-07-31 08:00] VITALS: BP 196/89; PULSE 73; RESP 18; TEMP 97.3; O2SAT 97
--- NOTE | 2017-07-31 08:01 | PD.ORT.PN ---
Subjective Post Op Day #: 2 Subjective Remarks pain tolerable. feeling well. ready to go home. Objective Vitals Vital Signs Date Time Temp Pulse Resp B/P (MAP) Pulse Ox O2 Delivery O2 Flow Rate FiO2 07/31/17 00:30 96.8 80 17 168/82 (110) 99 07/30/17 20:40 97.7 62 16 162/85 (110) 98 07/30/17 20:33 98 07/30/17 16:33 96.6 66 17 156/74 (101) 98 07/30/17 11:26 96.4 68 18 159/81 (107) 96 07/30/17 08:17 97 21 I/O 07/30/17 07/30/17 07/30/17 07/31/17 07/31/17 07/31/17 07:00 15:00 23:00 07:00 15:00 23:00 Intake Total 548 ml 720 ml 480 ml 360 ml Output Total 650 ml Balance -102 ml 720 ml 480 ml 360 ml Intake Oral 120 ml 720 ml 480 ml 360 ml IV Total 428 ml Output Urine Total 650 ml # Voids 1 1 1 # Bowel Movements 0 0 0 0 Result Diagram: 07/31/17 0600 07/31/17 0600 Objective Remarks in bed, nad dressing c/d/i neg homans nvi Assessment & Plan Ortho Post Op Day #: 2 Problem List: Assessment and Plan s/p R TKA wbat daily dressing changes lovenox d/c planning home with [facility] and pt - cleared today rx in chart f/up dr. hall 2 weeks Jeremy Kelly Jul 31, 2017 08:01
--- NOTE | 2017-07-31 12:15 | MD ---
cc: NEVIN TUCKER ADMISSION DATE: 07/29/2017 DISCHARGE DATE: 07/31/2017 ADMISSION DIAGNOSIS Severe degenerative osteoarthritis right knee. DISCHARGE DIAGNOSIS Severe degenerative osteoarthritis right knee. HISTORY OF PRESENT ILLNESS Mrs. Madsen is a 71-year-old female who presented to the [facility] for evaluation by Dr. Nevin Tucker regarding her severe and progressive right knee pain. She states the pain has been bothering her for several years' duration and currently is inhibiting her activities of daily living. She states she has a constant, severe aching sensation in the right knee aggravated by weightbearing activity. She has no alleviating factors, although in the past she has tried medications, bracing, physical therapy, home exercises and corticosteroid injection without relief of symptoms. She does have x-ray evidence of severe degenerative osteoarthritis of the right knee. While in the office the patient was counseled on her diagnosis and treatment options. The risks, benefits and indications were all discussed in great detail. The patient did elect to proceed with surgical intervention to include a right total knee arthroplasty. DATE OF SURGERY 07/29/2017 PROCEDURE PERFORMED Right total knee arthroplasty. POSTOP After surgery the patient was admitted to [facility] where she received appropriate medical management, pain control, DVT prophylaxis, as well as physical therapy. DISCHARGE Once being discharged from the hospital the patient was cleared to go home where she will receive home health care and home physical therapy. CONDITION She is in stable condition. DISCHARGE INSTRUCTIONS She may weight-bear as tolerated. The patient is to receive daily dressing changes and has been instructed on appropriate wound care management. DISCHARGE MEDICATIONS She has been provided prescriptions for pain control as well as DVT prophylaxis medication. FOLLOWUP She has also been provided a follow-up appointment in approximately two weeks from her day of surgery. The patient has asked appropriate questions which have been answered. The patient is cleared for discharge. Dictated by: Sandip Kelly PA-C Nevin Tucker MD JWM/JESSICA /8:02 AM /12:07 PM
== END 2017-07-31 10:02 | disposition home health service (06) | DRG 470 ==
LOC: HSDI 05:29 → N06B 14:47
PROVIDERS: ADMIT Orthopaedic Surgery Sports Medicine; ATTEND Orthopaedic Surgery Sports Medicine
PROC: 3E0T3BZ Introduction of Anesthetic Agent into Peripheral Nerves and Plexi, Percutaneous Approach (ICD-10-PCS; 2017-07-29)
PROC: 0SRC0J9 Replacement of Right Knee Joint with Synthetic Substitute, Cemented, Open Approach (ICD-10-PCS; principal; 2017-07-29 07:51)
DX: M17.11 Unilateral primary osteoarthritis, right knee (principal); I10 Essential (primary) hypertension; E78.5 Hyperlipidemia, unspecified; E11.9 Type 2 diabetes mellitus without complications; Z79.84 Long term (current) use of oral hypoglycemic drugs
CPT/HCPCS: 73560; 80048; 82948; 85027; 86850; 86900; 86901; 94150; C1776; C9290; J0330; J0690; J0735; J1100; J1580; J1650; J1885; J2175; J2250; J2370; J2405; J2795; J3010; J3370; J7030; J7050; J7120; L1830

== ENCOUNTER 2017-11-02 22:20 | Emergency (ER) | payer MEDICARE, OTHER ==
[~2017-11-02] VITALS: Ht 152.4 cm; Wt 52.0 kg
[~2017-11-02 22:20] MED LIST changes: +ASPI81CH6 CHEW; -COLC1CAP3 PO; +COLC1TAB15 PO; +COMMODE 3-IN-11 MIS; +CPMMACHINE; +ENOX30P SQ; +HYDR-3288 PO; -HYDR-3533 PO; +WALKER WHEELS/F1 MIS
[2017-11-02 22:22] VITALS: BP 192/94; PULSE 82; RESP 16; TEMP 98; O2SAT 100
[2017-11-02 23:09] VITALS: BP 221/98; PULSE 77; RESP 16; O2SAT 99
[2017-11-02] MEDS ORDERED: LOSA50TA PO (23:09)
[2017-11-02] MEDS ORDERED: COLC1CAP3 PO (23:09)
[2017-11-02] MEDS ORDERED: SODIUM CHLORIDE 0.9% FLUSH 10 ML FLUSH IVF PRN (23:15)
[2017-11-02] MEDS ORDERED: NITROGLYCERIN 2% OINT 1 GM PACKET TOPICAL ONE (23:15)
[2017-11-02] MEDS ORDERED: FUROSEMIDE 40 MG/4 ML VIAL IVP ONE (23:15)
--- NOTE | 2017-11-02 23:39 | RADRPT ---
EXAM DATE/TIME: 11/02/2017 23:22 [place] COMPARISON: CHEST PA & LAT, July 12, 2017, 14:11. INDICATIONS : Swelling to bilateral lower extremities MEDICAL HISTORY : Hypertension. Hypercholesterolemia. Diabetes mellitus type II. Hx of Renal Vasculitis SURGICAL HISTORY : Total knee replacement, right. Hysterectomy. ENCOUNTER: Initial ACUITY: 1 day PAIN SCORE: 8/10 LOCATION: Bilateral chest FINDINGS: A single view of the chest demonstrates stable calcified pleural thickening along the left hemithorax . The right lung is clear and well-aerated. No focal or acute pulmonary infiltrates are demonstrated. There is been no significant change compared to the prior study.. The cardiomediastinal contours ar e unremarkable and stable. Osseous structures are intact and stable. CONCLUSION: No acute disease. No significant change has occurred. Tate Gibson MD on November 02, 2017 at 23:37 Board Certified Radiologist. This report was verified electronically.
[2017-11-02 23:47] VITALS: BP 223/96; PULSE 74; RESP 16; O2SAT 100
[2017-11-02 23:52] LABS: BASOPHIL % 0.1 % (0.0-2.0); HEMATOCRIT 37.6 % (35.0-46.0); HEMOGLOBIN 12.2 GM/DL (11.6-15.3); LYMPH % 1.3 % (9.0-44.0); LYMPHOCYTE # 0.3 TH/MM3 (1.0-4.8); MEAN CORPUSCULAR HEMOGLOBIN 30.2 PG (27.0-34.0); MEAN CORPUSCULAR HGB CONC 32.5 % (32.0-36.0); MEAN PLATELET VOLUME 8.7 FL (7.0-11.0); MONO % 6.3 % (0.0-8.0); MONOCYTE # 1.4 TH/MM3 (0-0.9); NEUT % 92.3 % (16.0-70.0); PLATELET COUNT 599 TH/MM3 (150-450); RED BLOOD COUNT 4.04 MIL/MM3 (4.00-5.30); RED CELL DISTRIBUTION WIDTH 17.1 % (11.6-17.2); WHITE BLOOD COUNT 21.7 TH/MM3 (4.0-11.0)
[2017-11-03 00:09] LABS: BACTERIA, URINE OCC /hpf; BILIRUBIN, URINE NEG (NEG); BLOOD, URINE MOD (NEG); GLUCOSE,URINE 1000 mg/dL (NEG); KETONE, URINE NEG (NEG); MUCUS URINE FEW /lpf (OCC); NITRITE,URINE NEG (NEG); SQUAMOUS EPITHELIAL CELL URINE 1 /hpf (0-5); URINE COLOR LIGHT-YELLOW (YELLW/STRAW); URINE LEUKOCYTE ESTERASE NEG (NEG)
[2017-11-03 00:30] VITALS: BP 160/81; PULSE 75; RESP 25; O2SAT 100
[2017-11-03 00:40] LABS: ACANTHOCYTES OCC (NORMAL); OVALOCYTES 1+ (NORMAL)
--- NOTE | 2017-11-03 00:40 | PD ---
HPI . 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 Patient is noted to have recent increase in protein in her urine as well. Patient denies any fevers chills sweats, denies chest pain, denies any cough. PFSH Past Medical History Narrative Medical Past medical history reviewed. See history of present illness Atrial Fibrillation: Yes Cancer: No Cardiovascular Problems: No High Cholesterol: Yes Diabetes: Yes Patient Takes Glucophage: Yes Diminished Hearing: No Endocrine: Yes Genitourinary: Yes (KIDNEY STONE IN ) Hepatitis: No Hiatal Hernia: No Hypertension: Yes Immune Disorder: Yes (familial mediteranian fever ) Medical other: Yes (RENAL VASCULITIS ) Musculoskeletal: Yes (OA) Neurologic: No Psychiatric: No Reproductive: No Respiratory: No Thyroid Disease: No Tetanus Vaccination: > 5 Years Menopausal: Yes Past Surgical History AICD: No Body Medical Devices: NONE Eye Surgery: Yes (LT tear duct) Gynecologic Surgery: Yes (BENITA) Hysterectomy: Yes Joint Replacement: Yes (RIGHT KNEE REPLACEMENT) Pacemaker: No Other Surgery: Yes (thyroid nodule) Social History Alcohol Use: No Tobacco Use: No Substance Use: No Allergies-Medications (Allergen,Severity, Reaction): Coded Allergies: No Known Allergies (Unverified Adverse Reaction, Unknown, 11/02/17) Reported Meds & Prescriptions Reported Meds & Active Scripts Active Reported Losartan (Losartan Potassium) 50 Mg Tab 150 Mg PO DAILY Colchicine 0.6 Mg Cap 0.6 Mg PO DAILY Diltiazem CD 24 HR 300 Mg Caper 300 Mg PO DAILY Atorvastatin (Atorvastatin Calcium) 40 Mg Tab 40 Mg PO HS Metformin (Metformin HCl) 500 Mg Tab 500 Mg PO BIDPC With meals Narrative Medication Allergies and medications reviewed Review of Systems Except as stated in HPI: all other systems reviewed are Neg General / Constitutional: No: Fever Eyes: No: Visual changes HENT: No: Headaches Cardiovascular: Positive: Dyspnea on exertion, Edema, No: Chest Pain or Discomfort, Syncope Respiratory: Positive: Shortness of Breath, Orthopnea, No: Cough, Wheezing, Hemoptysis, Stridor, Night Sweats, Pleuritic Pain Gastrointestinal: No: Abdominal Pain Genitourinary: No: Dysuria Musculoskeletal: No: Pain Skin: No Rash Neurologic: No: Weakness Psychiatric: No: Depression Endocrine: No: Polydipsia Hematologic/Lymphatic: No: Easy Bruising Physical Exam Narrative GENERAL: Awake alert oriented 3 no acute distress SKIN: Warm and dry. Color is normal no diaphoresis cyanosis or pallor HEAD: Atraumatic. Normocephalic. EYES: Pupils equal and round. No scleral icterus. No injection or drainage. ENT: No nasal bleeding or discharge. Mucous membranes pink and moist. NECK: Trachea midline. No JVD. Supple nontender full range of motion CARDIOVASCULAR: Regular rate and rhythm. S1-S2 no murmurs rubs gallops RESPIRATORY: No accessory muscle use. Clear to auscultation. Breath sounds equal bilaterally. GASTROINTESTINAL: Abdomen soft, non-tender, nondistended. Hepatic and splenic margins not palpable. MUSCULOSKELETAL: Extremities without clubbing, cyanosis, 1+ edema bilateral lower extremities. Mild edema bilateral hands No obvious deformities. NEUROLOGICAL: Awake and alert. No obvious cranial nerve deficits. Motor grossly within normal limits. Five out of 5 muscle strength in the arms and legs. Normal speech. PSYCHIATRIC: Appropriate mood and affect; insight and judgment normal. Data Data Last Documented VS Vital Signs Date Time Temp Pulse Resp B/P (MAP) Pulse Ox O2 Delivery O2 Flow Rate FiO2 11/03/17 00:30 75 25 160/81 (107) 100 Room Air 11/02/17 22:22 98.0 Orders Orders Complete Blood Count With Diff (11/02/17 23:14) Comprehensive Metabolic Panel (11/02/17 23:14) B-Type Natriuretic Peptide (11/02/17 23:14) Magnesium (Mg) (11/02/17 23:14) Troponin I (11/02/17 23:14) Urinalysis - C+S If Indicated (11/02/17 23:14) Iv Access Insert/Monitor (11/02/17 23:14) Electrocardiogram (11/02/17 23:14) Ecg Monitoring (11/02/17 23:14) Oximetry (11/02/17 23:14) Chest, Single Ap (11/02/17 23:14) Sodium Chloride 0.9% Flush (Ns Flush) (11/02/17 23:15) Furosemide Inj (Lasix Inj) (11/02/17 23:15) Nitroglycerin 2% Oint (Nitroglycerin 2% (11/02/17 23:15) Urine Culture (11/02/17 23:45) Labs Laboratory Tests Test 11/02/17 23:30 11/02/17 23:45 11/03/17 00:30 White Blood Count 21.7 TH/MM3 Red Blood Count 4.04 MIL/MM3 Hemoglobin 12.2 GM/DL Hematocrit 37.6 % Mean Corpuscular Volume 93.0 FL Mean Corpuscular Hemoglobin 30.2 PG Mean Corpuscular Hemoglobin Concent 32.5 % Red Cell Distribution Width 17.1 % Platelet Count 599 TH/MM3 Mean Platelet Volume 8.7 FL Neutrophils (%) (Auto) 92.3 % Lymphocytes (%) (Auto) 1.3 % Monocytes (%) (Auto) 6.3 % Eosinophils (%) (Auto) 0.0 % Basophils (%) (Auto) 0.1 % Neutrophils # (Auto) 20.0 TH/MM3 Lymphocytes # (Auto) 0.3 TH/MM3 Monocytes # (Auto) 1.4 TH/MM3 Eosinophils # (Auto) 0.0 TH/MM3 Basophils # (Auto) 0.0 TH/MM3 CBC Comment AUTO DIFF Differential Comment AUTO DIFF CONFIRMED Platelet Estimate HIGH Platelet Morphology Comment NORMAL Ovalocytes 1+ Acanthocytes OCC B-Type Natriuretic Peptide 54 PG/ML Urine Color LIGHT-YELLOW Urine Turbidity HAZY Urine pH 6.0 Urine Specific [place] 1.014 Urine Protein 300 mg/dL Urine Glucose (UA) 1000 mg/dL Urine Ketones NEG mg/dL Urine Occult Blood MOD Urine Nitrite NEG Urine Bilirubin NEG Urine Urobilinogen LESS THAN 2.0 MG/DL Urine Leukocyte Esterase NEG Urine RBC 29 /hpf Urine WBC 8 /hpf Urine Squamous Epithelial Cells 1 /hpf Urine Bacteria OCC /hpf Urine Mucus FEW /lpf Microscopic Urinalysis Comment CULTURE INDICATED Blood Urea Nitrogen 89 MG/DL Creatinine 2.85 MG/DL Random Glucose 272 MG/DL Total Protein 6.0 GM/DL Albumin 2.3 GM/DL Calcium Level 8.1 MG/DL Magnesium Level 2.5 MG/DL Alkaline Phosphatase 157 U/L Aspartate Amino Transf (AST/SGOT) 28 U/L Alanine Aminotransferase (ALT/SGPT) 47 U/L Total Bilirubin 0.2 MG/DL Sodium Level 140 MEQ/L Potassium Level 5.8 MEQ/L Chloride Level 114 MEQ/L Carbon Dioxide Level 13.6 MEQ/L Anion Gap 12 MEQ/L Estimat Glomerular Filtration Rate 16 ML/MIN Troponin I 0.02 NG/ML MDM Medical Decision Making Medical Screen Exam Complete: Yes Emergency Medical Condition: Yes Medical Record Reviewed: Yes Differential Diagnosis Peripheral edema, nephrotic syndrome, renal artery vasculitis, CHF Narrative Course Chest x-ray normal, no acute infiltrates no CHF appreciated Wet blood cell count markedly high at 21.9. Patient is on concomitant high- dose steroid use. Patient is afebrile and not exhibiting any signs of sepsis/ SIRS Creatinine 2.85. Trended, patient has had elevated creatinine up to 1.8 recently. Patient responded well to Lasix, mobilize large volumes of clear urine and feels greatly improved, patient no longer has orthopnea and leg swelling is improved. Care plan developed. Patient to see her doctor Saturday morning for repeat laboratory examinations and reevaluation. Patient is to have an expedited referral to nephrology. Currently her first available appointment is November 20 , in 16 days. Patient is to return probably for worsening Diagnosis Primary Impression: Peripheral edema Additional Impression: Acute kidney injury Patient Instructions: Acute Kidney Injury (DC), General Instructions Additional Instructions: Lasix 20 mg twice daily. Follow-up with your doctor Saturday morning for repeat laboratory examinations. Recommend expedited nephrology referral this week coming up. Return probably for worsening Scripts Furosemide (Lasix) 20 Mg Tab 20 MG PO BID, #20 TAB 0 Refills Prov: Per Beckman MD 11/03/17 Disposition: DISCHARGE HOME Condition: Stable Per Beckman MD Nov 03, 2017 00:39
[2017-11-03 01:17] LABS: ALBUMIN 2.3 GM/DL (3.4-5.0); ALT (GPT) 47 U/L (10-53); AST (GOT) 28 U/L (15-37); BICARBONATE 13.6 MEQ/L (21.0-32.0); BLOOD UREA NITROGEN 89 MG/DL (7-18); CALCIUM 8.1 MG/DL (8.5-10.1); CHLORIDE 114 MEQ/L (98-107); CREATININE 2.85 MG/DL (0.50-1.00); GLOMERULAR FILTRATION RATE 16 ML/MIN (>89); GLUCOSE,RANDOM 272 MG/DL (74-106); MAGNESIUM 2.5 MG/DL (1.5-2.5); SODIUM (NA) 140 MEQ/L (136-145)
[2017-11-03 01:21] LABS: ALKALINE PHOSPHATASE 157 U/L (45-117); TOTAL BILIRUBIN ADULT 0.2 MG/DL (0.2-1.0); TROPONIN I 0.02 NG/ML (0.02-0.05)
[2017-11-03] MEDS ORDERED: FURO1TAB62 PO (02:24)
--- NOTE | 2017-11-03 17:15 | EKG ---
Date Performed: 11/02/2017 Time Performed: 23:35:20 PTAGE: 71 years EKG: Sinus rhythm NONSPECIFIC T-WAVE ABNORMALITY BORDERLINE ECG NO PREVIOUS TRACING DOCTOR: Yoni Watts Interpretating Date/Time 11/03/2017 17:14:28
== END 2017-11-03 02:34 | disposition home or self-care (01) ==
LOC: NEPE 22:20
DX: R60.0 Localized edema (principal); N17.9 Acute kidney failure, unspecified; B96.20 Unspecified Escherichia coli [E. coli] as the cause of diseases classified elsewhere; R06.00 Dyspnea, unspecified; R06.02 Shortness of breath; I77.89 Other specified disorders of arteries and arterioles; R94.31 Abnormal electrocardiogram [ECG] [EKG]; I48.91 Unspecified atrial fibrillation; I10 Essential (primary) hypertension
CPT/HCPCS: 71045; 80053; 81001; 83735; 83880; 84484; 85025; 87077; 87086; 87186; 93005; 96374; 99285; J1940